=== PATIENT | male | born 1990 | race Two or more races ===

== ENCOUNTER 2023-10-21 00:04 | Emergency (ER) | payer MEDICAID ==
[~2023-10-21] VITALS: Ht 188 cm; Wt 114.0 kg
[2023-10-21 00:11] VITALS: O2SAT 99
[2023-10-21] MEDS ORDERED: HYDROCODONE/ACETAMINOPHEN 5/325MG TABLET PO ONE (01:00)
[2023-10-21] MEDS: TETANUS, DIPHTHERIA, PERTUSSIS VAC/PF 0.5ML (>10YR OLD) IM ONE (01:00)
[2023-10-21] MEDS ORDERED: BACITRACIN ZINC OINT UDPKT TOP ONE (01:00)
[2023-10-21] MEDS: HYDROCODONE/ACETAMINOPHEN 5/325MG TABLET PO NR (02:20)
[2023-10-21] MEDS: BACITRACIN ZINC OINT UDPKT TOP NR (02:21)
[2023-10-21 02:31] VITALS: BP 115/82; PULSE 64; RESP 20; TEMP 98.2
== END 2023-10-21 03:17 | disposition home or self-care (01) ==
LOC: ER 00:04
DX: R07.89 Other chest pain (principal); R10.84 Generalized abdominal pain; J45.909 Unspecified asthma, uncomplicated; V49.59XA Passenger injured in collision with other motor vehicles in traffic accident, initial encounter; Y93.89 Activity, other specified; Y92.89 Other specified places as the place of occurrence of the external cause; Y99.8 Other external cause status
CPT/HCPCS: 71045; 71250; 74176; 90715; 99284